=== PATIENT | female | born 1990 | race Caucasian/White ===

== ENCOUNTER 2017-09-03 23:06 | Emergency (ER) | payer MEDICAID ==
[~2017-09-03] VITALS: Ht 152.4 cm; Wt 60.1 kg
[~2017-09-03 23:06] MED LIST: ACET500C5 PO; FAMO-96 PO
[2017-09-03 23:09] VITALS: Ht 152.4 cm; Wt 60.1 kg
[2017-09-03] MEDS ORDERED: ACETAMINOPHEN 500 MG TAB PO STA (23:30)
[2017-09-03] MEDS ORDERED: ONDANSETRON (ODT) 4 MG TAB ODT STA (23:30)
[2017-09-04 00:22] LABS: BASOPHILS % 0.3 % (0.0-2.0); EOSINOPHILS # 0.1 10^3/ul (0.0-0.5); EOSINOPHILS % 1.1 % (0.0-7.0); HEMATOCRIT 41.2 % (37.0-47.0); HEMOGLOBIN 14.6 g/dl (12.0-16.0); LYMPHOCYTES # 1.4 10^3/ul (0.8-2.9); LYMPHOCYTES % 10.6 % (15.0-51.0); MEAN CORPUSCULAR HEMOGLOBIN 30.5 pg (29.0-33.0); MEAN CORPUSCULAR HGB CONC 35.4 g/dl (32.0-37.0); MEAN CORPUSCULAR VOLUME 86.2 fl (82.0-101.0); MEAN PLATELET VOLUME 11.3 fl (7.4-10.4); MONOCYTE # 1.1 10^3/ul (0.3-0.9); MONOCYTES % 8.7 % (0.0-11.0); NEUTROPHIL # 10.2 10^3/ul (1.6-7.5); NEUTROPHILS % 78.9 % (39.0-77.0); PLATELET COUNT 213 10^3/UL (140-415); RED BLOOD COUNT 4.78 10^6/ul (4.20-5.40); RED CELL DISTRIBUTION WIDTH 12.1 % (11.5-14.5)
[2017-09-04 00:41] LABS: ADD UMIC NO; UR ASCORBIC ACID 20 mg/dL (NEGATIVE); UR BILIRUBIN (Dip) NEGATIVE (NEGATIVE); UR BLOOD (Dip) NEGATIVE (NEGATIVE); UR CLARITY CLEAR (CLEAR); UR COLOR YELLOW (YELLOW); UR GLUCOSE (Dip) NEGATIVE (NEGATIVE); UR KETONES (Dip) TRACE mg/dL (NEGATIVE); UR LEUKOCYTE ESTERASE (Dip) NEGATIVE Leu/ul (NEGATIVE); UR NITRITE (Dip) NEGATIVE (NEGATIVE); UR SPECIFIC GRAVITY (Dip) 1.016 (1.003-1.030); UR TOTAL PROTEIN (Dip) NEGATIVE (NEGATIVE); UR UROBILINOGEN (Dip) NEGATIVE (NEGATIVE)
[2017-09-04 00:43] LABS: ALBUMIN 4.3 g/dl (3.3-4.9); ALBUMIN/GLOBULIN RATIO 1.22; BILIRUBIN,INDIRECT 0.6 mg/dl (0-1.1); BILIRUBIN,TOTAL 0.6 mg/dl (0.2-1.3); CALCIUM 9.5 mg/dl (8.4-10.2); CREATININE 0.69 mg/dl (0.44-1.00); POTASSIUM 4.3 mmol/L (3.5-5.1); TOTAL PROTEIN 7.8 g/dl (6.1-8.1)
[2017-09-04] MEDS ORDERED: FAMO-96 PO (00:58)
[2017-09-04] MEDS ORDERED: ONDA4TAB14 PO (00:58)
--- NOTE | 2017-09-04 02:32 | ERD ---
ER Documentation Chief Complaint Chief Complaint abdominal pain with vomiting x 3 days HPI This is a 27-year-old female presenting to the emergency department complaining of epigastric pain, a couple episodes of nonbilious nonbloody vomiting for the past 2 days. Patient states that the pain is worse after eating. She denies any fevers, diarrhea. ROS All systems reviewed and are negative except as per history of present illness. Medications Home Meds Active Scripts Famotidine* (Pepcid*) 20 Mg Tablet, 20 MG PO DAILY, #10 TAB Prov:OLIVIER PHILLIPS PA-C 09/04/17 Ondansetron (Ondansetron Odt) 4 Mg Tab.rapdis, 4 MG PO Q6H Y for NAUSEA AND/OR VOMITING, #10 TAB Prov:OLIVIER PHILLIPS PA-C 09/04/17 Famotidine* (Pepcid*) 20 Mg Tablet, 20 MG PO qday for 14 Days, TAB Prov:JOSELINE HOPPER MD 03/03/16 Acetaminophen* (Tylophen*) 500 Mg Capsule, 1 CAP PO Q6H Y for PAIN AND OR ELEVATED TEMP, #14 CAP Prov:JOSELINE HOPPER MD 03/03/16 Allergies Allergies: Coded Allergies: No Known Allergy (Verified , 08/13/10) PMhx/Soc Medical and Surgical Hx: pt denies Medical Hx, pt denies Surgical Hx Hx Alcohol Use: No Hx Substance Use: No Hx Tobacco Use: No Smoking Status: Never smoker Physical Exam Vitals Vital Signs Date Time Temp Pulse Resp B/P Pulse Ox O2 Delivery O2 Flow Rate FiO2 09/03/17 23:09 98.7 65 19 115/49 99 Physical Exam GENERAL: well-developed/well-nourished, in no apparent distress, non-toxic appearing HENT: NC/AT, moist mucous membranes EYES: Conjunctiva normal NECK: Supple, no lymphadenopathy PULM: CTA bilaterally, no rales, rhonchi, or wheezing heard CV: Normal S1S2, RRR, good capillary refill GI: Soft, non-distended, tender to palpation to gastric region Normal bowel sounds, no masses or organomegaly felt on exam No gross peritonitis, no bruits Negative Rovsing, negative Kruger, negative McBurney's point, Negative CVAT BACK: No masses EXT: No clubbing, cyanosis, or edema NEURO: Alert and Orientated SKIN: Intact, normal turgor PSYCH: Normal mood and mentation Result Diagram: 09/04/17909/04/17 001 Results 24 hrs Laboratory Tests Test 09/04/17 00:00 09/04/17 00:10 Urine Color YELLOW Urine Clarity CLEAR Urine pH 7.0 Urine Specific Alkol 1.016 Urine Ketones TRACEmg/dL Urine Nitrite NEGATIVEmg/dL Urine Bilirubin NEGATIVEmg/dL Urine Urobilinogen NEGATIVEmg/dL Urine Leukocyte Esterase NEGATIVELeu/ul Urine Hemoglobin NEGATIVEmg/dL Urine Glucose NEGATIVEmg/dL Urine Total Protein NEGATIVEmg/dl White Blood Count 13.010^3/ul Red Blood Count 4.7810^6/ul Hemoglobin 14.6g/dl Hematocrit 41.2% Mean Corpuscular Volume 86.2fl Mean Corpuscular Hemoglobin 30.5pg Mean Corpuscular Hemoglobin Concent 35.4g/dl Red Cell Distribution Width 12.1% Platelet Count 93930^3/UL Mean Platelet Volume 11.3fl Neutrophils % 78.9% Lymphocytes % 10.6% Monocytes % 8.7% Eosinophils % 1.1% Basophils % 0.3% Nucleated Red Blood Cells % 0.0/100WBC Neutrophils # 10.210^3/ul Lymphocytes # 1.410^3/ul Monocytes # 1.110^3/ul Eosinophils # 0.110^3/ul Basophils # 0.010^3/ul Nucleated Red Blood Cells # 0.010^3/ul Sodium Level 141mmol/L Potassium Level 4.3mmol/L Chloride Level 100mmol/L Carbon Dioxide Level 31mmol/L Anion Gap 14 Blood Urea Nitrogen 9mg/dl Creatinine 0.69mg/dl Glucose Level 102mg/dl Calcium Level 9.5mg/dl Total Bilirubin 0.6mg/dl Direct Bilirubin 0.00mg/dl Indirect Bilirubin 0.6mg/dl Aspartate Amino Transf (AST/SGOT) 24IU/L Alanine Aminotransferase (ALT/SGPT) 35IU/L Alkaline Phosphatase 117IU/L Total Protein 7.8g/dl Albumin 4.3g/dl Globulin 3.50g/dl Albumin/Globulin Ratio 1.22 Lipase 24U/L Current Medications Medications (Trade) Dose Ordered Sig/Tameka Route PRN Reason Start Time Stop Time Status Last Admin Dose Admin Ondansetron HCl (Zofran Odt) 4 mg ONCE STAT ODT 09/03/17 23:30 09/03/17 23:32 DC 09/04/17 00:16 Acetaminophen (Tylenol Tab) 500 mg ONCE STAT PO 09/03/17 23:30 09/03/17 23:32 DC 09/04/17 00:16 Procedures/MDM This is a 27-year-old female presenting to the emergency department with epigastric pain with nonbilious nonbloody vomiting for the past 2 days. Differentials include but not limited to gastritis, gastritis, gallbladder polyps. [I doubt patient has sepsis, choledocholithiasis, cholecystitis or cholangitis, pancreatitis or other acute abdomen conditions due to physical examination and diagnostic testing. Patient appears well and nontoxic appearing with stable vital signs. Gallbladder US: 1. 0.4 mm echogenic focus in the gallbladder is likely a benign cholesterol polyp or adherent tumefactive sludge. 2. Otherwise unremarkable right upper quadrant ultrasound. Diagnostic testing and instructions were given to patient. Pain control and antiemetic prescriptions were provided for outpatient self-care. Discussed with patient to follow-up with primary care for GI referral. Precautions were given to return to the ER for fever, intractable pain, increased vomiting, and other worsening signs and symptoms. Patient expressed agreement and understanding of this plan.] Departure Diagnosis: Primary Impression: Epigastric pain Additional Impressions: Gallbladder polyp Vomiting Condition: Stable Patient Instructions: Diet, Vomiting Or Diarrhea [6Yr-Adult], Vomiting (6Y- Adult), Epigastric Pain (Uncertain Cause) Additional Instructions: Visite a leiva cy menezes para un EXAMEN.Regrese a estas instalaciones si no se mejora melly esperbamos o melly le dijimos. [place] toda la medicina magda y melly se le indic. Regrese a estas instalaciones si no se mejora melly esperbamos o melly le dijimos. OLIVIER HPILLIPS PA-C Sep 04, 2017 02:32
== END 2017-09-04 02:11 | disposition home or self-care (01) ==
LOC: FTE 23:06
DX: K82.4 Cholesterolosis of gallbladder (principal)
CPT/HCPCS: 36415; 76705; 80053; 81003; 83690; 85025; Z7502; Z7610